=== PATIENT | male | born 1975 | race Caucasian/White ===

== ENCOUNTER 2020-03-04 14:33 | Emergency (ER) | payer BC, OTHER ==
[2020-03-04 14:39] VITALS: TEMP 98.7; BMI 60.5
--- OUTSIDE RECORDS SUMMARY | 2020-03-04 15:52 | XMS ---
:1975 Author Organization [facility] Support Name Relationship Address Phone [facility] Unavailable [address] [phone] [place] [address] RAUL AGUIRRE BROTHER [address] [place] [address] ISABEL AGUIRRE COUSIN [address] [place] [address] Re-disclosure Warning The records that you are about to access may contain information from federally- assisted alcohol or drug abuse programs. If such information is present, then the following federally mandated warning applies: This information has been disclosed to you from records protected by federal confidentiality rules (42 CFR part 2). The federal rules prohibit you from making any further disclosure of this information unless further disclosure is expressly permitted by the written consent of the person to whom it pertains or as otherwise permitted by 42 CFR part 2. A general authorization for the release of medical or other information is NOT sufficient for this purpose. The Federal rules restrict any use of the information to criminally investigate or prosecute any alcohol or drug abuse patient.The records that you are about to access may contain highly sensitive health information, the redisclosure of which is protected by Article 27-F of the [facility] Public Health law. If you continue you may haveaccess to information: Regarding HIV / AIDS; Provided by facilities licensed or operated by the [facility] Office of Mental Health; or Provided by the [facility] Office for People With Developmental Disabilities. If such information is present, then the following [facility] mandated warning applies: This information has been disclosed to you from confidential records which are protected by state law. State law prohibits you from making any further disclosure of this information without the specific written consent of the person to whom it pertains, or as otherwise permitted by law. Any unauthorized further disclosure in violation of state law may result in a fine or halfway sentence or both. A general authorization for the release of medical or other information is NOT sufficient authorization for further disclosure. Insurance Providers Payer name Policy type Policy ID Covered Covered constitution party's Policy P cat / Coverage constitution party ID relationship to [employer] Inf ormation type espinosa [facility] HMO [id number] tna Open [id number] S [id number] Access
--- NOTE | 2020-03-04 16:09 | PDOC ---
History of Present Illness - General Chief Complaint: Urinary Problem Stated Complaint: BURNING ON URINATION History Source: Patient Exam Limitations: No Limitations - History of Present Illness Initial Comments: 03/04/20 16:04 44 yo M p/w burning on urination x2 days and reports seeing a drop of blood when urinating today. Also reports a clear discharge that he describes as being lke mucous and states this morning noticed a small amount of greenish discharge but none since. Denies testicular pain. Has not been sexually activ ein the past 2 months but reports being sexually active prior to that with female partner and no condom use. Denies h/o STIs but is not sure of the last time he was tested. Denies abdominal pain. Past History - Medical History Allergies/Adverse Reactions: Allergies Allergy/AdvReac Type Severity Reaction Status Date / Time No Known Allergies Allergy Verified 09/28/11 00:49 Home Medications: Ambulatory Orders Omeprazole Magnesium [Prilosec (OTC)] 20 mg PO DAILY 11/14/11 Ciprofloxacin [Cipro (Restricted To Id)] 500 mg PO Q12H #28 tablet 03/04/20 COPD: No Diabetes: Yes (BORDERLINE, NO MEDS TAKEN) Hypercholesterolemia: Yes - Immunization History Immunization Up to Date: Yes - Psycho-Social/Smoking History Smoking Status: No Smoking History: Never smoked Have you smoked in the past 12 months: No Number of Cigarettes Smoked Daily: 0 Information on smoking cessation initiated: No - Substance Abuse Hx (Audit-C & DAST Scrn) How often the patient has a drink containing alcohol: Never Score: In Men: 4 or > Positive; In Women: 3 or > Positive: 0 Screen Result (Pos requires Nsg. Audit-10AR): Negative In the last yr the pt used illegal drug/Rx for NonMed reason: No Score: Yes response is considered Positive: 0 Screen Result (Positive result requires Nsg. DAST-10): Negative Review of Systems - Review of Systems Able to Perform ROS?: Yes Comments:: 03/04/20 16:06 GENERAL/CONSTITUTIONAL: No fever or chills. No weakness. HEAD, EYES, EARS, NOSE AND THROAT: No change in vision. No ear pain or discharge. No sore throat. CARDIOVASCULAR: No chest pain or shortness of breath. RESPIRATORY: No cough, wheezing, or hemoptysis. GASTROINTESTINAL: No nausea, vomiting, diarrhea or constipation. GENITOURINARY: As per HPI MUSCULOSKELETAL: No joint or muscle swelling or pain. No neck or back pain. NEUROLOGIC: No headache, vertigo, loss of consciousness, or change in strength/sensation. ENDOCRINE: No increased thirst. No abnormal weight change. HEMATOLOGIC/LYMPHATIC: No anemia, easy bleeding, or history of blood clots. ALLERGIC/IMMUNOLOGIC: No hives or skin allergy. *Physical Exam - Vital Signs Last Vital Signs Temp Pulse Resp BP Pulse Ox 98.7 F 131 H 20 134/90 98 03/04/20 14:34 03/04/20 14:34 03/04/20 14:34 03/04/20 14:34 03/04/20 14:34 - Physical Exam 03/04/20 16:08 GENERAL: Well appearing, in no acute distress HEENT: NCAT, conjunctiva not injected, MMM, EOMI NECK: Normal ROM, supple LUNGS: CTAB. Good air entry. No wheezes, No Rhonchi and no crackles HEART: RRR, + s1 s2, no murmurs, rubs or gallops ABDOMEN: Soft, nontender, normoactive bowel sounds. No guarding, no rebound. No masses GENITAL: uncircumcised, small amount of clear urethral discharge, no lesions or vesicles noted, no testicular/scrotal tenderness or erythema BACK: no midline or paraspinal tenderness. No CVA tenderness. EXTREMITIES: Warm and well perfused. No LE edema. FROM. No clubbing or cy anosis. No cords, erythema, or tenderness NEUROLOGICAL: Aox3, Speech fluent, face symmetric, tongue/uvula midline. Sensation grossly intact to light touch. Ambulatory with steady gait. Strength intact. No focal deficits. Medical Decision Making - Medical Decision Making 03/04/20 16:09 44 yo M with possible STD vs. UTI. Plan: -UA/UCx -GC/Chlamydia sent -will treat empirically for GC/Chlamydia given prior sexual activity without barrier contraception and report of green discharge earlier today -if urine concerning for UTI will also given abx for possible UTI -anticipate d/c home with return precautions, recommend PMD f/u, counseled on safe sex practices, instructed to abstain from sexual activity for 7 days This clinical encounter is taking place during a federal and state health care emergency attributable to the novel [place] Virus pandemic. The [employer] of the Department of Health and Human Services has declared, pursuant to the Public Health Service Act 319F-3 (42 U.S.C. 247d-6d), that a covered persons activities related to medical countermeasures against COVID-19 will be immune from liability under Federal and State law. 03/04/20 18:45 HR improved to 85 without intervention. UA suspicious for possible UTI as UA is nitrite + so will treat with cipro for possible UTI and CTX/azithro for suspected GC/Chlamydia given urethral discharge. Will d/c with return orecautions, recommend PMD f/u Discharge - Discharge Information Problems reviewed: Yes Clinical Impression/Diagnosis: UTI (urinary tract infection) Qualifiers: Urinary tract infection type: site unspecified Hematuria presence: with hematuria Qualified Code(s): N39.0 - Urinary tract infection, site not specified; R31.9 - Hematuria, unspecified Condition: Stable Disposition: HOME - Additional Discharge Information Prescriptions: Ciprofloxacin [Cipro (Restricted To Id)] 500 mg PO Q12H #28 tablet - Follow up/Referral - Patient Discharge Instructions Patient Printed Discharge Instructions: Facts About Sexually Transmitted Infections, DI for Urinary Tract Infection (UTI) Additional Instructions: You were treated for Gonorrhea and Chlamydia today. You should refrain from all sexual activity for at least 7 days. You are also being discharged with a prescription for ciprofloxacin for the treatment of a suspected urinary tract infection. You should follow up with your regular doctor. Return to the ED for new or worsening symptoms. - Post Discharge Activity
[2020-03-04 16:19] VITALS: BP 122/82; PULSE 88
[2020-03-04] MEDS ORDERED: AZITHROMYCIN 500 MG TABLET PO ONE (18:41)
[2020-03-04] MEDS ORDERED: CIPROFLOXACIN 500 MG TABLET (RESTRICTED TO ID) PO ONE (18:41)
[2020-03-04] MEDS ORDERED: AZITHROMYCIN 250 MG TABLET ONE (18:53)
[2020-03-04] MEDS ORDERED: CIPROFLOXACIN 250 MG TABLET (RESTRICTED TO ID) PO ONE (18:53)
== END 2020-03-04 19:03 | disposition home or self-care (01) ==
LOC: FER 14:33
DX: N39.0 Urinary tract infection, site not specified (principal); R31.9 Hematuria, unspecified
CPT/HCPCS: 36415; 81003; 81015; 87086; 87186; 87491; 87591; 99284-25